=== PATIENT | female | born 1955 | race Caucasian/White ===

== ENCOUNTER → 2016-05-05 | Outpatient (CLI) | payer OTHER ==
[2014-10-30 07:00] VITALS: BP 131/62
[~2016-05-05] MED LIST: ASPI-482 PO; BIOT300T PO; BUPR300T4 PO; CELE200C PO; CHOL500015 PO; CONTRAST GIVEN MC PRN; CYAN1TAB28 PO; ESTR2TAB PO; FURO-68 PO; HYDR12.53 PO; IOHEXOL 240 MG/ML 50ML VIAL. IV ONE; IOHEXOL 300 MG/ML 75 ML VIAL IV ONE; LEVO175T5 PO; LOSA100T6 PO; MAGN250T5 PO; METF750T2 PO; METF850T2 PO; Oxycodone Hcl/Acetaminophen PO; PRAM0.25 PO; PRAS1TAB3 PO; SITA100T PO; Sennosides/Docusate Sodium PO; [UNRECOGNIZED DRUG - CODE] SL; primrose oil PO
[2016-05-05 14:14] LABS: CREATININE 0.9 mg/dL (0.6-1.0); GFR 63.4
--- NOTE | 2016-05-05 15:04 | RAD ---
CT of the abdomen and pelvis with contrast, 05/05/2016: History: Abdominal pain, bloating, right lower quadrant bulge Multidetector CT imaging was performed following oral and IV administration of contrast. Comparison is made to a study from 06/23/2014. The liver is unremarkable. No gallbladder abnormality is seen. There is a small nonspecific calcification in the pancreatic tail there is no evidence of a pancreatic mass. The spleen is of normal size. A 3.6 cm cyst is present anteriorly in the right kidney. There is a 2 cm cortical nodule in the lateral aspect of the right kidney. It is of higher density than a simple cyst. A larger cyst was present in this region on the previous exam. The decrease in size suggests a benign etiology such as a hemorrhagic cyst. The kidneys show no evidence of obstruction. The abdominal aorta is of normal caliber. No abdominal or pelvic adenopathy is seen. The uterus and both ovaries are unremarkable. The bowel loops are not dilated. The appendix is not visualized. No dilated appendix or pericecal inflammatory process is seen. No free fluid or free air is evident in the abdomen or pelvis. There are moderate scattered degenerative changes in the spine. There is a mild spondylolisthesis at L4-5. IMPRESSION: 1. Right renal cysts. 2. No acute abdominal or pelvic abnormality is detected.
== END | disposition home or self-care (01) ==
LOC: CT 12:36
PROVIDERS: ATTEND Surgery
DX: R10.9 Unspecified abdominal pain (principal); N28.1 Cyst of kidney, acquired
CPT/HCPCS: 36415; 74177; 82565; Q9966; Q9967

== ENCOUNTER → 2017-04-23 | Outpatient (CLI) | payer OTHER | END | disposition home or self-care (01) | LOC: KCIC MRI 14:08 | DX: M54.42 Lumbago with sciatica, left side (principal); M48.061 Spinal stenosis, lumbar region without neurogenic claudication; M48.04 Spinal stenosis, thoracic region; M47.895 Other spondylosis, thoracolumbar region; E88.2 Lipomatosis, not elsewhere classified | CPT/HCPCS: 72148 ==

== ENCOUNTER 2019-06-03 11:36 | Observation (INO) | payer MEDICARE, OTHER ==
[~2019-06-03] VITALS: Ht 157.5 cm; Wt 104.5 kg
[2019-06-03] VITALS (9 sets, daily range): BP systolic 109–178; BP diastolic 38–112
[~2019-06-03 11:36] MED LIST changes: -BIOT300T PO; +BIOT300T4 PO; -BUPR300T4 PO; +BUPR300T92 PO; -CHOL500015 PO; +CHOL500045 PO; -CONTRAST GIVEN MC PRN; +HEPARIN 1,000 UNIT in IV NORMAL SALINE 1,000 ML for SURG PERIOP IRR ONE; -HYDR12.53 PO; +HYDR12.575 PO; +IBUPROFEN 200 MG TABLET. PO PRN; -IOHEXOL 240 MG/ML 50ML VIAL. IV ONE; -IOHEXOL 300 MG/ML 75 ML VIAL IV ONE; +IV RINGERS,LACTATED 1000ML 1,000 ML IV SCH; +LIDOCAINE 2% PF 5 ML VIAL. ONE; +LOSA100T14 PO; -LOSA100T6 PO; +MAGN250T10 PO; -MAGN250T5 PO; -METF750T2 PO; +METF750T39 PO; -METF850T2 PO; +METF850T8 PO; +ONDANSETRON PF 4 MG/2 ML VIAL. IV PRN; +PROPOFOL 20 ML IV ONE; +ROCURONIUM 50 MG/5 ML VIAL. ONE; +ceFAZolin 2GM PREMIX 2 GM/50 ML BAG IV ONE; +fentaNYL PF VIAL 100 MCG/2 ML VIAL IV PRN; +fentaNYL PF VIAL 100 MCG/2 ML VIAL ONE
[2019-06-03] MEDS ORDERED: DILT180C29 PO (12:08)
[2019-06-03] MEDS ORDERED: LIRA0.6P2 SQ (12:09)
[2019-06-03] MEDS ORDERED: INSULIN LISPRO 100 UNIT/ML 3ML VIAL for OP,RR ONLY. SQ PRN (12:15)
[2019-06-03] MEDS ORDERED: SCOPOLAMINE 1.5MG PATCH. TD ONE (12:30)
[2019-06-03] MEDS ORDERED: INSULIN LISPRO 100 UNIT/ML 3ML VIAL for OP,RR ONLY. SQ ONE (12:35)
--- NOTE | 2019-06-03 13:24 | PDOC ---
SURGICAL PROGRESS NOTE Subjective 64 yo F with c/o intermittent issues with abd pain and chest pain (feels like SD). Imaging c/w symptomatic cholelithiasis. TO OR for laparoscopic versus open exploration, cholecystectomy with cholangiogram. R/R/B/A d/w pt and pt's supportive . Risks, including, but not limited to: bleeding, infection, damage to surrounding structures, risk of anesthesia, risk of open, risk of and not resolving symptoms. They appear to understand, their questions are answered and they elect to proceed. Office note H&P reviewed and they elect to proceed. Vital Signs Vital Signs Date Time Temp Pulse Resp B/P (MAP) Pulse Ox O2 Delivery O2 Flow Rate FiO2 06/03/19 12:12 99.0 75 18 170/75 100 Room Air 99.0 Labs Laboratory Tests Test 06/03/19 12:09 Glucose (Fingerstick) 190 mg/dL (70-99) Laboratory Tests Test 06/03/19 12:09 Glucose (Fingerstick) 190 mg/dL (70-99) RANDELL LR MD Jun 03, 2019 13:24
[2019-06-03] MEDS ORDERED: BUPIVACAINE-EPI 0.5%-1:200000 MPF 30 ML VIAL. ONE (13:27)
[2019-06-03] MEDS ORDERED: IOHEXOL 300 MG/ML 50 ML VIAL. ONE (13:28)
[2019-06-03] MEDS ORDERED: BISACODYL 10 MG SUPP.RECT. ONE (13:28)
[2019-06-03] MEDS ORDERED: SURGICEL HEMOSTAT 4X8 EACH. ONE (13:28)
[2019-06-03] MEDS ORDERED: DEXAMETHASONE SOD PHOS 20 MG/5 ML VIAL. ONE (13:52)
[2019-06-03] MEDS ORDERED: ONDANSETRON PF 4 MG/2 ML VIAL. ONE (13:52)
[2019-06-03] MEDS ORDERED: ePHEDrine PF IN SALINE 50 MG/10 ML SYRINGE. IV ONE (14:08)
[2019-06-03] MEDS ORDERED: PHENYLEPHRINE in 0.9% NACL PF 1 MG/10 ML SYRINGE. IV ONE (14:08)
[2019-06-03] MEDS ORDERED: GLYCOPYRROLATE 1 MG/5 ML VIAL. ONE (14:17)
[2019-06-03] MEDS ORDERED: NEOSTIGMINE METHYLSULFATE 5 MG/5 ML SYRINGE. ONE (14:18)
[2019-06-03] MEDS ORDERED: GLUCAGON,HUMAN RECOMBINANT 1 MG/ML VIAL. ONE (14:37)
--- NOTE | 2019-06-03 15:24 | RAD ---
Operative cholangiogram. HISTORY: Cholecystectomy Images were obtained from an operative cholangiogram. The bile duct had a normal appearance. There was mild extravasation at the injection site at the cystic duct. Intrahepatic bile ducts appear unremarkable. A bile duct stone is not identified. There is flow of contrast into the duodenum. 0.27 minutes of fluoroscopy were used for the study. 5 images were saved to the PACS. Electronically signed by: Daniel Rodriguez MD (06/03/2019 3:20 PM) [id number]
[2019-06-03] MEDS: IV RINGERS,LACTATED 1000ML 1,000 ML IV SCH (15:55)
[2019-06-03] MEDS ORDERED: IV NORMAL SALINE 1000ML BAG 1,000 ML IV SCH (15:55)
[2019-06-03] MEDS ORDERED: NALOXONE 0.4 MG/ML VIAL. IV PRN (16:00)
[2019-06-03] MEDS ORDERED: DEXTROSE 50% 25 GM / 50ML DISP.SYRIN. IV PRN (16:00)
[2019-06-03] MEDS ORDERED: ONDANSETRON PF 4 MG/2 ML VIAL. IVP PRN (16:00)
[2019-06-03] MEDS ORDERED: 0.9 % SODIUM CHLORIDE 10 ML DISP.SYRIN. IV PRN (16:00)
[2019-06-03] MEDS ORDERED: PROCHLORPERAZINE 10 MG/2 ML VIAL. ONE (16:06)
--- NOTE | 2019-06-03 16:06 | PDOC4 ---
OPERATIVE NOTE Date: Date: Jun 03, 2019 Pre-Op Diagnosis: Symptomatic cholelithiasis Post-Op Diagnosis: calculous cholecystitis Procedure Performed: laparoscopic cholecystectomy with cholangiogram Surgeon: Saud Lr Anesthesia Type: GETA plus local Blood Loss: 50 Specimans Obtained: gallbladder Findings: adhesions to gallbladder, spasm of sphincter of oddi, otherwise normal cholangiogram Complications: none Operative Note: After obtaining informed consent, patient was taken to OR, induced under GETA and prepped in the usual fashion. 5 mm port placed supraumbilical (pt previous had umbilicus removed) and RUQ, 12 port placed epigastric, all under laparoscopic guidance. Abdominal cavity was explored and otherwise unremarkable, except for morbid obesity. Gallbladder was noted to have adhesions. It was taken down in a dome down fashion using cautery. Critical view was obtained demonstrating cystic arteries and cystic duct only structures into gallbladder. Cystic arteries divided between clips. Cystic duct was used to obtain cholangiogram, which demonstrated some spasm of sphincter of oddi, but no stones. Contrast did go into duodenum. Cystic duct controlled with hemolok and clips. Gallbladder placed in bag, delivered and sent to pathology for evaluation. Copious irrigation. No evidence of bleeding or other pathology. Ports removed without bleeding. Fascia repaired with 0 vicryl. Skin repaired with 4 0 monocryl. Dressing placed. Patient tolerated procedure well and sent to PACU in stable condition. All counts correct. Wound class is 2. RANDELL LR MD Jun 03, 2019 16:06
[2019-06-03] MEDS: PROCHLORPERAZINE 10 MG/2 ML VIAL. IV PRN ×2 (16:15→16:40)
[2019-06-03] MEDS: HYDROcodone/APAP 5/325MG 1 TAB TABLET PO PRN ×2 (17:44→21:18)
[2019-06-03] MEDS: DOCUSATE SODIUM 100 MG CAPSULE. PO SCH (21:18)
[2019-06-04] MEDS: IV RINGERS,LACTATED 1000ML 1,000 ML IV SCH (01:55)
[2019-06-04 03:00] VITALS: BP 116/61
[2019-06-04] MEDS: HYDROcodone/APAP 5/325MG 1 TAB TABLET PO PRN (05:35)
[2019-06-04 07:15] VITALS: BP 126/51
[2019-06-04] MEDS: DOCUSATE SODIUM 100 MG CAPSULE. PO SCH (08:28)
--- NOTE | 2019-06-04 09:43 | PDOC3 ---
Discharge Summary Visit Information Date of Admission: Jun 03, 2019 Date of Discharge: Jun 04, 2019 Admitting Diagnosis: symptomatic cholelithiasis Final Diagnosis calculous cholecystitis Brief Hospital Course Allergies Allergies Coded Allergies Type Severity Reaction Last Updated Verified morphine Allergy Intermediate HIVES 06/03/19 Yes Vital Signs Vital Signs Date Time Temp Pulse Resp B/P (MAP) Pulse Ox O2 Delivery O2 Flow Rate FiO2 06/04/19 07:15 98.5 76 20 126/51 (76) 98 Room Air 98.5 06/03/19 15:45 10 Lab Results Laboratory Tests Test 06/03/19 12:09 06/03/19 15:09 06/04/19 08:30 Glucose (Fingerstick) 190 mg/dL (70-99) 170 mg/dL (70-99) 208 mg/dL (70-99) Laboratory Tests Test 06/03/19 12:09 06/03/19 15:09 06/04/19 08:30 Glucose (Fingerstick) 190 mg/dL (70-99) 170 mg/dL (70-99) 208 mg/dL (70-99) Brief Hospital Course Ms. Quinones is a 64 old F who presented with calculous cholecystitis. She underwent uncomplicated laparoscopic cholecystectomy with cholangiogram. POD #1 she was doing well, tolerating diet with pain control and d/c home. Assessment Assessment calculous cholecystitis Discharge Information Condition at Discharge: Improved Follow Up: Weeks (2) Disposition/Orders: D/C to Home Scheduled Aspirin (Aspir 81) 81 Mg Tablet.dr, 1 TAB PO DAILY, #30 Ref 5 (Reported) Entered as Reported by: MARIA G BROWN on 12/29/13 1129 Last Taken: Unknown Dose on 05/28/19 Last Action: Reviewed on 06/03/191840 by DERRICK GARCIA RN Biotin (Biotin) 300 Mcg Tablet, 1,000 MCG PO DAILY, (Reported) Entered as Reported by: BRICE MEDINA on 10/19/14 135 Last Action: Reviewed on 06/03/191840 by DERRICK GARCIA RN Bupropion Hcl (Bupropion Xl) 300 Mg Tab.er.24h, 1 TAB PO DAILYWBKFT, #30 Ref 2 (Reported) Entered as Reported by: BRICE MEDINA on 10/19/141358 Last Taken: Unknown Dose on 06/03/19629 Last Action: Reviewed on 06/03/191840 by DERRICK GARCIA RN Cholecalciferol (Vitamin D3) (Vitamin D) 5,000 Unit Tablet, 5,000 UNIT PO BID, (Reported) Entered as Reported by: BRICE MEDINA on 10/19/14 1359 Last Action: Reviewed on 06/03/191840 by DERRICK GARCIA RN Cyanocobalamin/Folic Acid (Vitamin W48-Ovvjd Acid Tablet) 1 Each Tablet, 500 MG PO DAILY, (Reported) Entered as Reported by: BRICE MEDINA on 10/19/14 135 Last Action: Reviewed on 06/03/191840 by DERRICK GARCIA RN Diltiazem Hcl (Diltiazem 24HR Cd) 180 Mg Cap.er.24h, 180 MG PO DAILY for DAILY, (Reported) Entered as Reported by: GHISLAINE HADLEY on 06/03/191207 Last Taken: Unknown Dose on 06/03/19929 Last Action: Reviewed on 06/03/191840 by DERRICK GARCIA RN Hydrochlorothiazide (Hydrochlorothiazide Capsule ) 12.5 Mg Capsule, 2 CAP PO DAILY, #30 Ref 5 (Reported) Entered as Reported by: BRICE MEDINA on 10/19/141358 Last Action: Reviewed on 06/03/191840 by DERRICK GARCIA RN Levothyroxine Sodium (Levothyroxine Sodium) 175 Mcg Tablet, 1 TAB PO DAILY, #30 Ref 5 (Reported) Entered as Reported by: MARIA G BROWN on 12/29/13 112 Last Taken: Unknown Dose on 06/03/19629 Last Action: Reviewed on 06/03/191840 by DERRICK GARCIA RN Liraglutide (Victoza 3-Kiko) 0.6 Mg/0.1 Ml Pen.injctr, 0.6 MG SQ DAILY for DIABETES, (Reported) Entered as Reported by: GHISLAINE HADLEY on 06/03/191208 Last Action: Reviewed on 06/03/191840 by DERRICK GARCIA RN Losartan Potassium (Losartan Potassium) 100 Mg Tablet, 1 TAB PO DAILY, #30 Ref 5 (Reported) Entered as Reported by: MARIA G BROWN on 12/29/13 112 Last Taken: Unknown Dose on 06/03/19929 Last Action: Reviewed on 06/03/191840 by DERRICK GARCIA RN Magnesium Oxide (Magnesium) 250 Mg Tablet, 500 MG PO BID, (Reported) Entered as Reported by: BRICE MEDINA on 10/19/141358 Last Action: Reviewed on 06/03/191840 by DERRICK GARCIA RN Pramipexole Di-Hcl (Pramipexole Dihydrochloride) 0.25 Mg Tablet, 0.25 MG PO DAILY, (Reported) Entered as Reported by: BRICE MEDINA on 10/19/141358 Last Action: Reviewed on 06/03/191840 by DERRICK GARCIA RN Prasterone (Dhea)/Calcium Carb (Dhea 50 Mg Tablet) 1 Each Tablet, 1 EACH PO QEVNG, (Reported) Entered as Reported by: BRICE MEDINA on 10/19/141358 Last Action: Reviewed on 06/03/191840 by DERRICK GARCIA RN [primrose oil] , 1,000 MG PO DAILY, (Reported) Entered as Reported by: BRICE MEDINA on 10/19/141358 Last Action: Reviewed on 06/03/191840 by DERRICK GARCIA RN Scheduled PRN [estrad/prog] , MG SL for qhs, (Reported) Entered as Reported by: BRICE MEDINA on 10/19/141358 Last Action: Reviewed on 06/03/191840 by DERRICK GARCIA RN Discontinued Medications Metformin Hcl (Metformin Hcl Er) 750 Mg Tab.er.24h, 1 TAB PO DAILY, #90 Ref 1 (Reported) Entered as Reported by: BRICE MEDINA on 10/19/141358 Last Action: Discontinued on 06/03/19 120 by RANDELL DUONG MD Jun 04, 2019 09:43
--- NOTE | 2019-06-04 11:13 | NUR ---
pt discharged home with spouse. meds, incision care, and follow up reviewed. pt voiced understanding. IV removed, cath intact
--- NOTE | 2019-06-06 11:07 | PATHOLOGY ---
[facility] Accession Number: [id number] . 01 Material submitted: . gallbladder - GALLBLADDER AND CONTENTS . 01 Clinical history: . Gallstones, sludge . 02 Diagnosis: Gallbladder, cholecystectomy: - Cholelithiasis. - Chronic and focal mild acute cholecystitis. 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 02 Comment: There is no evidence of malignancy. 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 02 Electronically signed: . Grant Castaneda MD, Pathologist NPI- [id number] . 01 Gross description: . The specimen is received in formalin, labeled "Alexandra Quinones", "gallbladder and contents". Received is an intact gallbladder measuring 9.8 x 4.5 x 4.1 cm. The external surface is smooth, shiny and pale blue-green. Opening the gallbladder reveals a green, velvety, bile-stained mucosa. The gallbladder wall measures 0.1 cm to 0.2 cm in thickness. No solid masses or nodules are identified. Calculi are present within the gallbladder ranging in size from 0.2 cm to 0.4 cm. Food Assembler Kitchen sections are submitted in cassette A1.(SNA; 06/04/2019) . After initial microscopic examination, additional petroleum products sales representative sections of the proximal margin, body, and fundus of the gallbladder are submitted in cassette A2. (CAA; 06/05/2019) KACIE/MICHAEL 06/05/2019 1328 Local . 02 Pathologist provided ICD-10: K80.10 . 02 CPT . 641199 Specimen Comment: A courtesy copy of this report has been sent to [phone] Specimen Comment: [id number] Specimen Comment: Report sent to / DR SOLARES Performed at: 01 [facility] [address], [place], [place] [id number] MD Lalit Hernández MD Phone: [phone] Performed at: 02 [facility] [address] [place], [place] [id number] MD Grant Castaneda MD Phone: [phone]
== END 2019-06-04 10:45 | disposition home or self-care (01) ==
LOC: SURG 11:36 → 4 NORTH 16:30
PROVIDERS: ADMIT Surgery; ATTEND Surgery
DX: K80.10 Calculus of gallbladder with chronic cholecystitis without obstruction (principal); R07.89 Other chest pain; E66.01 Morbid (severe) obesity due to excess calories; Z79.82 Long term (current) use of aspirin; Z79.899 Other long term (current) drug therapy
CPT/HCPCS: 47563; 74300; 82962; 88304; A7015; G0378; G0379; J0171; J0696; J0780; J1100; J1644; J1815; J2001; J2370; J2405; J2704; J2710; J3010; J3490; J7030; J7120; Q9967; J1610

== ENCOUNTER → 2020-06-15 | Outpatient (CLI) | payer MEDICARE, OTHER ==
[~2020-06-15] MED LIST changes: +DILT180C29 PO; -HEPARIN 1,000 UNIT in IV NORMAL SALINE 1,000 ML for SURG PERIOP IRR ONE; -IBUPROFEN 200 MG TABLET. PO PRN; -IV RINGERS,LACTATED 1000ML 1,000 ML IV SCH; -LIDOCAINE 2% PF 5 ML VIAL. ONE; +LIRA0.6P2 SQ; -ONDANSETRON PF 4 MG/2 ML VIAL. IV PRN; -PROPOFOL 20 ML IV ONE; -ROCURONIUM 50 MG/5 ML VIAL. ONE; -ceFAZolin 2GM PREMIX 2 GM/50 ML BAG IV ONE; -fentaNYL PF VIAL 100 MCG/2 ML VIAL IV PRN; -fentaNYL PF VIAL 100 MCG/2 ML VIAL ONE
--- NOTE | 2020-06-15 13:32 | KCIC ---
EXAM: Chest, 2 views. HISTORY: Pulmonary nodule. COMPARISON: 05/07/2020 FINDINGS: 2 views of the chest are obtained. There is no infiltrate, pleural effusion or pneumothorax . The heart is normal in size. IMPRESSION: 1. No acute pulmonary finding. 2. Note is made that recently described pulmonary nodules on the CT performed 05/07/2020 demonstrate n o convincing radiographic correlate. Electronically signed by: Magdalena Bull MD (06/15/2020 1:30 PM) [id number]
== END ==
LOC: KCIC 12:48
PROVIDERS: ATTEND Family Medicine
DX: R91.1 Solitary pulmonary nodule (principal)
CPT/HCPCS: 71046